=== PATIENT | female | born 1935 | race Caucasian/White ===

== ENCOUNTER 2016-08-30 09:24 | Emergency (ER) | payer OTHER ==
[~2016-08-30] VITALS: Ht 167.6 cm; Wt 81.6 kg
[2016-08-30 10:19] LABS: DEFINITIVE VIEW TRANSMISSION; Eosinophils # (auto) 0.4 uL; Monocytes # (auto) 0.3 uL; SUSPECT VIEW TRANSMISSION
[2016-08-30] MEDS ORDERED: SODIUM CHLORIDE 0.9% 1,000 ML IV ONE (10:39)
[2016-08-30 10:42] LABS: Basophils # (auto) 0.1 uL; Basophils % (auto) 0.5 % (0.0-2.0); Hematocrit 39.6 % (36.0-46.0); Hemoglobin 12.4 g/dL (12.2-16.2); Lymphocytes # (auto) 1.4 uL; Lymphocytes % (auto) 14.2 % (10.0-50.0); Mean Corpuscular Hemoglobin 25.5 pg (28.0-32.0); Mean Corpuscular Hgb Conc. 31.3 g/dL (32.0-36.0); Mean Corpuscular Volume 81.6 fL (80.0-100.0); Mean Platelet Volume 8.6 fL (7.4-10.4); Monocytes % (auto) 3.4 % (0.0-12.0); Neutrophils # (auto) 7.5 uL; Neutrophils % (auto) 77.9 % (37.0-80.0); Platelet Count (auto) 678 10^3/uL (140-450); Red Cell Distribution Width 19.9 % (11.6-16.0); White Blood Cell 9.7 10^3/uL (4.4-10.8)
[2016-08-30 10:44] LABS: Albumin 3.5 g/dL (3.4-5.0); BUN/Creatinine Ratio 18.3; Bilirubin, Total 0.4 mg/dL (0.2-1.0); Calcium 8.8 mg/dL (8.5-10.1); Magnesium 2.3 mg/dL (1.6-2.6); Potassium 4.5 mmol/L (3.5-5.1); Total Protein 6.9 g/dL (6.4-8.2)
[2016-08-30] MEDS ORDERED: MONT10TA34 OR (11:09)
[2016-08-30] MEDS ORDERED: LISI-646 PO (11:12)
[2016-08-30] MEDS ORDERED: MIRT15TA63 PO (11:12)
[2016-08-30] MEDS ORDERED: LISI-285 PO (11:12)
[2016-08-30] MEDS ORDERED: ASPI81CH43 GT (11:12)
[2016-08-30 11:41] LABS: INR 1.06 (0.9-1.15); Prothrombin Time 10.9 sec (9.37-12.3)
[2016-08-30] MEDS ORDERED: [UNRECOGNIZED DRUG - CODE] PO (11:58)
[2016-08-30] MEDS ORDERED: TRAM50TA2 PO (11:58)
[2016-08-30] MEDS ORDERED: CALC600T4 PO (11:58)
[2016-08-30] MEDS ORDERED: [UNRECOGNIZED DRUG - CODE] PO (11:58)
[2016-08-30] MEDS ORDERED: FAMO1CHW PO (11:58)
[2016-08-30 12:11] LABS: Urine Bilirubin Negative (Negative); Urine Blood Negative /uL (Negative); Urine Color Yellow (Yellow); Urine Glucose Normal (Normal); Urine Ketone Negative (Negative); Urine Nitrite Negative (Negative); Urine RBC <1 /hpf (0 - 4); Urine Squamous Epithelial Cell FEW /hpf (<5); Urine Urobilinogen Normal (Negative); Urine pH 5.5 (5.0-8.0)
[2016-08-30] MEDS ORDERED: cefTRIAXone 1GM/50ML D5W 50 ML IV ONE (13:45)
[2016-08-30 15:40] VITALS: BP 161/79
== END 2016-08-30 16:43 | disposition home or self-care (01) ==
LOC: EDUNIT# 09:24 → EDBD 09:24 → ER 09:30
DX: R53.1 Weakness (principal); G45.9 Transient cerebral ischemic attack, unspecified; N39.0 Urinary tract infection, site not specified; J44.9 Chronic obstructive pulmonary disease, unspecified; I10 Essential (primary) hypertension
CPT/HCPCS: 36415; 51702; 70450; 71010; 80053; 80320; 81001; 83735; 84443; 84484; 85025; 85610; 85730; 93005; 94761; 96361; 96365; 99285; G0434; J0696; J7030